=== PATIENT | male | born 1965 | race African-American/Black ===

== ENCOUNTER 2018-04-13 12:13 | Inpatient (IN) | payer OTHER ==
[2018-04-13 14:02] VITALS: BMI 27.6
--- NOTE | 2018-04-13 16:32 | HP ---
CIWA Score - CIWA Score Nausea/Vomitin-No Nausea/No Vomiting Muscle Tremors: 3 Anxiety: 3 Agitation: 2 Paroxysmal Sweats: 2 Orientation: 0-Oriented Tacttile Disturbances: 0-None Auditory Disturbances: 2-Mild Harshness/Frighten Visual Disturbances: 0-None Headache: 0-None Present CIWA-Ar Total Score: 12 Admission ROS BHS - HPI Chief Complaint: alcohol withdrawal sx Allergies/Adverse Reactions: Allergies Allergy/AdvReac Type Severity Reaction Status Date / Time No Known Allergies Allergy Verified 04/13/18 14:49 History of Present Illness: 52 yo male with hx of nicotine, alcohol and crack / cociane is here seeking detox. Last detox [facility] detox 01/31/16 -02/04/16. Reports recently relapse one month ago. PMHX: DM II, GERD, asthma, HTN, depression. Denies suicidal / homicidal ideation or hx of suicide attempt. Denies hx of seizures or blackouts. Longest period of sobriety five years. Exam Limitations: No Limitations - Ebola screening Have you traveled outside of the country in the last 21 days: No Have you had contact with anyone from an Ebola affected area: No Have you been sick,other than usual withdrawal symptoms: No - Review of Systems Constitutional: Chills EENT: reports: Hearing Loss (left ear decrease) Respiratory: reports: No Symptoms reported Cardiac: reports: No Symptoms Reported GI: reports: Poor Fluid Intake, Indigestion : reports: No Symptoms Reported Musculoskeletal: reports: No Symptoms Reported Integumentary: reports: No Symptoms Reported Neuro: reports: Tremors (" I get the shakes in the AM") Endocrine: reports: Increased Thirst Hematology: reports: No Symptoms Reported Psychiatric: reports: Orientated x3, Anxious Other Systems: Reviewed and Negative Patient History - Patient Medical History Hx Anemia: No Hx Asthma: Yes Hx Chronic Obstructive Pulmonary Disease (COPD): No Hx Cancer: No Hx Cardiac Disorders: No Hx Congestive Heart Failure: No Hx Hypertension: Yes Hx Hypercholesterolemia: No Hx Pacemaker: No HX Cerebrovascular Accident: No Hx Seizures: No Hx Dementia: No Hx Diabetes: Yes (IDDM) Hx Gastrointestinal Disorders: Yes (acid reflux) Hx Liver Disease: No Hx Genitourinary Disorders: No Hx Sexually Transmitted Disorders: No Hx Renal Disease (ESRD): No Hx Thyroid Disease: No Hx Human Immunodeficiency Virus (HIV): Yes (1988- on atripla cd4 = 400s) Hx Hepatitis C: No Hx Depression: Yes Hx Suicide Attempt: No Hx Bipolar Disorder: No Hx Schizophrenia: No - Patient Surgical History Past Surgical History: Yes Hx Neurologic Surgery: No Hx Cataract Extraction: No Hx Cardiac Surgery: No Hx Lung Surgery: No Hx Breast Surgery: No Hx Breast Biopsy: No Hx Abdominal Surgery: No Hx Appendectomy: No Hx Cholecystectomy: No Hx Genitourinary Surgery: No Hx Section: No Hx Orthopedic Surgery: No Hx Hysterectomy: No Other Surgical History: tomsillectomy at age 11 Anesthesia Reaction: No - PPD History Previous Implant?: Yes Documented Results: Negative w/proof Implanted On Prior [facility] Admission?: Yes Date: 02/02/16 Results: 0 mm - Smoking Cessation Smoking history: Current every day smoker Have you smoked in the past 12 months: Yes Aproximately how many cigarettes per day: 3 Cigars Per Day: 0 Hx Chewing Tobacco Use: No Initiated information on smoking cessation: Yes 'Breaking Loose' booklet given: 04/13/18 - Substance & Tx. History Hx Alcohol Use: Yes Hx Substance Use: Yes Substance Use Type: Alcohol, Cocaine Hx Substance Use Treatment: Yes (Last detox [facility] detox 01/31/16 -02/04/16.) - Substances Abused Crack Route: Smoking Frequency: 1-2 times per week Amount used: $100 Age of first use: 24 Date of Last Use: 04/12/18 Alcohol-vodka/beer Route: Oral Frequency: Daily Amount used: 2 pts./1 (12 oz.) Age of first use: 16 Date of Last Use: 04/13/18 Family Disease History - Family Disease History Family Disease History: Diabetes: Grandparent, Other: Father (NEVER MEET), Mother (NEVER MEET) Admission Physical Exam BHS - Vital Signs Vital Signs: Vital Signs - 24 hr 04/13/18 13:59 Temperature 96.7 F L Pulse Rate 94 H Respiratory 18 Rate Blood Pressure 128/80 - Physical General Appearance: Yes: Disheveled, Thin, Sweating, Anxious HEENTM: Yes: EOMI, Hearing grossly Normal, Normal ENT Inspection, Normocephalic , Normal Voice, STEFANIE, Pharynx Normal, Tm's normal Respiratory: Yes: Chest Non-Tender, Lungs Clear, Normal Breath Sounds, No Respiratory Distress, No Accessory Muscle Use Neck: Yes: Within Normal Limits Breast: Yes: Breast Exam Deferred Cardiology: Yes: Regular Rhythm, Regular Rate Abdominal: Yes: Normal Bowel Sounds, Non Tender, Flat, Soft Genitourinary: Yes: Within Normal Limits Back: Yes: Normal Inspection Musculoskeletal: Yes: full range of Motion, Gait Steady, Pelvis Stable Extremities: Yes: Normal Capillary Refill, Normal Inspection, Normal Range of Motion, Non-Tender 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: 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: 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 intact, Fully Oriented, Alert, Motor Strength 5/5, Depressed Affect Integumentary: Yes: Normal Color, Warm, Diaphoresis Lymphatic: Yes: Within Normal Limits - Diagnostic (1) Diabetes mellitus type 2 in nonobese Current Visit: Yes Status: Chronic (2) Alcohol dependence with uncomplicated withdrawal Current Visit: Yes Status: Acute (3) Hypertension Current Visit: Yes Status: Chronic Qualifiers: Hypertension type: essential hypertension Qualified Code(s): I10 - Essential (primary) hypertension (4) Nicotine dependence Current Visit: Yes Status: Acute Qualifiers: Nicotine product type: cigarettes Substance use status: uncomplicated Qualified Code(s): F17.210 - Nicotine dependence, cigarettes, uncomplicated (5) Acquired immune deficiency syndrome (AIDS) Current Visit: Yes Status: Chronic (6) Asthma Current Visit: Yes Status: Chronic (7) Cocaine dependence Current Visit: Yes Status: Chronic (8) Hypercholesteremia Current Visit: Yes Status: Chronic (9) GERD (gastroesophageal reflux disease) Current Visit: Yes Status: Suspected Qualifiers: Esophagitis presence: without esophagitis Qualified Code(s): K21.9 - Gastro -esophageal reflux disease without esophagitis Cleared for Admission [facility] - Detox or Rehab [facility] Level of Care: Medically Managed Detox Regimen/Protocol: Librium [facility] Breath Alcohol Content Breath Alcohol Content: 0.018 Urine Drug Screen - Results Drug Screen Negative: No Urine Drug Screen Results: JAZZY-Cocaine
[2018-04-13] MEDS ORDERED: ALBUTEROL SO4 8 GM HFA INHALER IH PRN (16:36)
[2018-04-13] MEDS ORDERED: IBUPROFEN 400 MG TABLET (FP) PO PRN (16:38)
[2018-04-13] MEDS ORDERED: NICOTINE POLACRILEX 2 MG GUM BC PRN (16:38)
[2018-04-13] MEDS ORDERED: MENTHOL/PHENOL 1 EACH UD MM PRN (16:38)
[2018-04-13] MEDS ORDERED: ACETAMINOPHEN 325 MG TABLET (FP) PO PRN (16:38)
[2018-04-13] MEDS ORDERED: guaiFENesin/D-METHORPHAN HB 10 ML UNIT-DOSE CUPS PO PRN (16:38)
[2018-04-13] MEDS ORDERED: MAG HYDROX/AL HYDROX/SIMETH 30 ML UNIT-DOSE CUP PO PRN (16:38)
[2018-04-13] MEDS ORDERED: P-EPHED 60MG/TRIPROLIDI 2.5MG TABLET PO PRN (16:38)
[2018-04-13] MEDS ORDERED: MAGNESIUM HYDROX 2400MG/30ML ORAL SUSPENSION 30 ML CUP PO PRN (16:38)
[2018-04-13] MEDS ORDERED: MAGNESIUM CITRATE 300 ML BOTTLE PO PRN (16:38)
[2018-04-13] MEDS ORDERED: chlordiazePOXIDE HCL 25 MG CAPSULE PO PRN (16:38)
[2018-04-13] MEDS ORDERED: LOPERAMIDE HCL 2 MG CAPSULE PO PRN (16:38)
[2018-04-13] MEDS ORDERED: MELATONIN 5 MG TABLETS PO PRN (22:00)
[2018-04-13] MEDS: THIAMINE HCL 100 MG TABLET (FP) PO SCH (22:22)
[2018-04-13] MEDS: INSULIN (LEVEMIR) 100 UNITS/ML UNITS SQ SCH (22:23)
[2018-04-13] MEDS: chlordiazePOXIDE HCL 25 MG CAPSULE PO SCH (22:24)
[2018-04-13 23:26] LABS: URINE APPEARANCE CLEAR; URINE BILIRUBIN NEGATIVE (<2.0 mg/dL); URINE COLOR LTYELLOW; URINE GLUCOSE (UA) NEGATIVE (NEGATIVE); URINE KETONE NEGATIVE (NEGATIVE); URINE LEUK ESTERASE NEGATIVE (NEGATIVE); URINE NITRITE NEGATIVE (NEGATIVE); URINE PROTEIN NEGATIVE (NEGATIVE); URINE UROBILINOGEN NEGATIVE mg/dL (0.2-1.0)
[2018-04-14] MEDS: chlordiazePOXIDE HCL 25 MG CAPSULE PO SCH ×4 (06:22→22:18)
--- NOTE | 2018-04-14 09:06 | CONSULT ---
[facility] Psychiatric Consult - Data Date of interview: 04/14/18 Admission source: [facility] Identifying data: Patient is a 52 year old single male, father of one, unemployed, and currenly homeless. This is one of multiple admissions for patient. Patient admitted to for for alcohol dependence. Substance Abuse History: Smoking Cessation. Smoking history: Current every day smoker. Have you smoked in the past 12 months: Yes. Aproximately how many cigarettes per day: 3. Cigars Per Day: 0. Hx Chewing Tobacco Use: No. Initiated information on smoking cessation: Yes. 'Breaking Loose' booklet given : 04/13/18. - Substance & Tx. History. Hx Alcohol Use: Yes. Hx Substance Use : Yes. Substance Use Type: Alcohol, Cocaine. Hx Substance Use Treatment: Yes ( Last detox [facility] detox 01/31/16 -02/04/16.). - Substances Abused. Crack. Route : Smoking. Frequency: 1-2 times per week. Amount used: $100. Age of first use : 24. Date of Last Use: 04/12/18. Alcohol-vodka/beer. Route: Oral. Frequency: Daily. Amount used: 2 pts./1 (12 oz.). Age of first use: 16. Date of Last Use: 04/13/18 Medical History: Asthma, hypertension, diabetes, acid reflux, HIV, tonsillectomy Psychiatric History: Patient unable to provide a clear psychiatric history. He denies h/o psychiatric hospitalization and suicide attempt. He reports current outpatient psychiatric care. States he is accepting a "medication for depression but does not take it everyday." Patient is nonadherent to OPD. Currently, he reports feeling fine. Physical/Sexual Abuse/Trauma History: denies. Mental Status Exam - Mental Status Exam Alert and Oriented to: Time, Place, Person Cognitive Function: Good Patient Appearance: Well Groomed Mood: Euthymic Affect: Mood Congruent Patient Behavior: Fatigued, Cooperative Speech Pattern: Appropriate Voice Loudness: Moderately Soft/Quiet Thought Process: Intact, Goal Oriented Thought Disorder: Not Present Hallucinations: Denies Suicidal Ideation: Denies Homicidal Ideation: Denies Insight/Judgement: Poor Sleep: Fair Appetite: Fair Muscle strength/Tone: Normal Gait/Station: Normal Psychiatric Findings - Problem List ([place] 1, 2,3) (1) Alcohol dependence with uncomplicated withdrawal Current Visit: Yes Status: Acute (2) Cocaine dependence Current Visit: Yes Status: Chronic (3) Drug-induced mood disorder Current Visit: Yes Status: Suspected Comment: Observation Detox care unit protocol - Initial Treatment Plan Initial Treatment Plan: Psychoeducation provided. Detoxification in progress. Observation.
[2018-04-14] MEDS: PRENATAL VITAMINS W/ FOLIC ACID TABLET (FP) PO SCH (10:08)
[2018-04-14] MEDS: NICOTINE 14 MG/24 HOURS TOPICAL PATCH TD SCH (10:08)
[2018-04-14] MEDS: PATIENT'S OWN MEDICATION (NON-FORMULARY) (Efavirenz/Emtricitab/Tenofovir 1 TAB) PO SCH (10:09)
[2018-04-14 10:13] LABS: HEMATOCRIT 44.5 % (35.4-49); HEMOGLOBIN 15.3 GM/dL (11.7-16.9); MCH 28.7 pg (25.7-33.7); MCHC 34.3 g/dl (32.0-35.9); MEAN CELL VOLUME 83.5 fl (80-96); PLATELET COUNT 243 K/MM3 (134-434); RBC 5.33 M/mm3 (4.00-5.60); RDW 13.5 % (11.9-15.9); WHITE BLOOD COUNT 4.8 K/mm3 (4.0-10.0)
[2018-04-14] MEDS: HYDROCHLOROTHIAZIDE 25 MG TABLET (FP) PO SCH (10:24)
[2018-04-14] MEDS: amLODIPine BESYLATE 10 MG TABLET (FP) PO SCH (10:24)
[2018-04-14 10:47] LABS: ALBUMIN 3.9 g/dl (3.4-5.0); ALK PHOS 86 U/L (45-117); ANION GAP 12 MMOL/L (8-16); BILIRUBIN,TOTAL 0.3 mg/dL (0.2-1); BLOOD UREA NITROGEN 28 mg/dL (7-18); CALCIUM 9.7 mg/dL (8.5-10.1); CHLORIDE 101 mmol/L (98-107); CO2 24 mmol/L (21-32); CREATININE 1.2 mg/dL (0.55-1.3); GLUCOSE,RANDOM 107 mg/dL (74-106); POTASSIUM 3.8 mmol/L (3.5-5.1); SGOT/AST 21 U/L (15-37); SGPT/ALT 35 U/L (13-61); SODIUM 137 mmol/L (136-145); TOT PROT 8.1 g/dl (6.4-8.2)
--- NOTE | 2018-04-14 12:32 | PN ---
S CIWA - CIWA Score Nausea/Vomitin-Mild Nausea/No Vomiting Muscle Tremors: 3 Anxiety: 2 Agitation: 3 Paroxysmal Sweats: 1-Minimal Palms Moist Orientation: 0-Oriented Tacttile Disturbances: 1-Very Mild Itch/Numbness Auditory Disturbances: 0-None Visual Disturbances: 0-None Headache: 0-None Present CIWA-Ar Total Score: 11 BHS Progress Note (SOAP) Subjective: sweat tremor restlessness trouble sleep at night Objective: 04/14/18 12:32 Vital Signs Temperature 97.9 F 04/14/18 08:53 Pulse Rate 51 L 04/14/18 08:53 Respiratory Rate 18 04/14/18 08:53 Blood Pressure 103/55 L 04/14/18 08:53 O2 Sat by Pulse Oximetry (%) Laboratory Last Values WBC 4.8 K/mm3 (4.0-10.0) 04/14/18 06:00 RBC 5.33 M/mm3 (4.00-5.60) 04/14/18 06:00 Hgb 15.3 GM/dL (11.7-16.9) 04/14/18 06:00 Hct 44.5 % (35.4-49) 04/14/18 06:00 MCV 83.5 fl (80-96) 04/14/18 06:00 MCH 28.7 pg (25.7-33.7) 04/14/18 06:00 MCHC 34.3 g/dl (32.0-35.9) 04/14/18 06:00 RDW 13.5 % (11.9-15.9) 04/14/18 06:00 Plt Count 243 K/MM3 (134-434) D 04/14/18 06:00 MPV 11.0 fl (7.5-11.1) 04/14/18 06:00 Sodium 137 mmol/L (136-145) 04/14/18 06:00 Potassium 3.8 mmol/L (3.5-5.1) 04/14/18 06:00 Chloride 101 mmol/L (98-107) 04/14/18 06:00 Carbon Dioxide 24 mmol/L (21-32) 04/14/18 06:00 Anion Gap 12 MMOL/L (8-16) 04/14/18 06:00 BUN 28 mg/dL (7-18) H 04/14/18 06:00 Creatinine 1.2 mg/dL (0.55-1.3) 04/14/18 06:00 Creat Clearance w eGFR > 60 (>60) 04/14/18 06:00 POC Glucometer 107 UNITS (80-120) 04/14/18 11:37 Random Glucose 107 mg/dL (74-106) H 04/14/18 06:00 Calcium 9.7 mg/dL (8.5-10.1) 04/14/18 06:00 Total Bilirubin 0.3 mg/dL (0.2-1) 04/14/18 06:00 AST 21 U/L (15-37) 04/14/18 06:00 ALT 35 U/L (13-61) 04/14/18 06:00 Alkaline Phosphatase 86 U/L (45-117) 04/14/18 06:00 Total Protein 8.1 g/dl (6.4-8.2) 04/14/18 06:00 Albumin 3.9 g/dl (3.4-5.0) 04/14/18 06:00 Urine Color Ltyellow 04/13/18 20:48 Urine Appearance Clear 04/13/18 20:48 Urine pH 5.0 (5.0-8.0) D 04/13/18 20:48 Ur Specific [place] 1.019 (1.010-1.035) 04/13/18 20:48 Urine Protein Negative (NEGATIVE) 04/13/18 20:48 Urine Glucose (UA) Negative (NEGATIVE) 04/13/18 20:48 Urine Ketones Negative (NEGATIVE) 04/13/18 20:48 Urine Blood Negative (NEGATIVE) 04/13/18 20:48 Urine Nitrite Negative (NEGATIVE) 04/13/18 20:48 Urine Bilirubin Negative (<2.0 mg/dL) 04/13/18 20:48 Urine Urobilinogen Negative mg/dL (0.2-1.0) 04/13/18 20:48 Ur Leukocyte Esterase Negative (NEGATIVE) 04/13/18 20:48 RPR Titer Nonreactive (NONREACTIVE) 04/14/18 06:00 lab noted Assessment: 04/14/18 12:32 withdrawal sx Plan: continue detox
--- NOTE | 2018-04-14 13:18 | EKG ---
Test Reason : Blood Pressure : / mmHG Vent. Rate : 073 BPM Atrial Rate : 073 BPM P-R Int : 154 ms QRS Dur : 088 ms QT Int : 380 ms P-R-T Axes : 071 072 074 degrees QTc Int : 418 ms NORMAL SINUS RHYTHM MODERATE VOLTAGE CRITERIA FOR LVH, MAY BE NORMAL VARIANT BORDERLINE ECG NO PREVIOUS ECGS AVAILABLE Confirmed by MD SUSAN, EYAD ([id number]) on 04/14/2018 1:17:45 PM Referred By: Confirmed By:EYAD DAVIS MD
[2018-04-14] MEDS: INSULIN (LEVEMIR) 100 UNITS/ML UNITS SQ SCH (22:17)
[2018-04-14] MEDS: THIAMINE HCL 100 MG TABLET (FP) PO SCH (22:17)
[2018-04-15] MEDS: chlordiazePOXIDE HCL 25 MG CAPSULE PO SCH ×3 (05:45→16:53)
[2018-04-15] MEDS: PRENATAL VITAMINS W/ FOLIC ACID TABLET (FP) PO SCH (10:21)
[2018-04-15] MEDS: NICOTINE 14 MG/24 HOURS TOPICAL PATCH TD SCH (10:21)
[2018-04-15] MEDS: PATIENT'S OWN MEDICATION (NON-FORMULARY) (Efavirenz/Emtricitab/Tenofovir 1 TAB) PO SCH (10:21)
[2018-04-15] MEDS: HYDROCHLOROTHIAZIDE 25 MG TABLET (FP) PO SCH (10:21)
[2018-04-15] MEDS: amLODIPine BESYLATE 10 MG TABLET (FP) PO SCH (10:21)
--- NOTE | 2018-04-15 12:04 | PN ---
[facility] CIWA - CIWA Score Nausea/Vomitin-No Nausea/No Vomiting Muscle Tremors: 3 Anxiety: 2 Agitation: 1-Slight > Activity Paroxysmal Sweats: 1-Minimal Palms Moist Orientation: 1-Uncertain about Date (to date) Tacttile Disturbances: 1-Very Mild Itch/Numbness Auditory Disturbances: 0-None Visual Disturbances: 0-None Headache: 1-Very Mild CIWA-Ar Total Score: 10 BHS Progress Note (SOAP) Subjective: sweat tremor trouble sleep at night gi destress Objective: 04/15/18 12:03 Vital Signs Temperature 98.1 F 04/15/18 10:04 Pulse Rate 57 L 04/15/18 10:04 Respiratory Rate 18 04/15/18 10:04 Blood Pressure 124/76 04/15/18 10:04 O2 Sat by Pulse Oximetry (%) Laboratory Last Values WBC 4.8 K/mm3 (4.0-10.0) 04/14/18 06:00 RBC 5.33 M/mm3 (4.00-5.60) 04/14/18 06:00 Hgb 15.3 GM/dL (11.7-16.9) 04/14/18 06:00 Hct 44.5 % (35.4-49) 04/14/18 06:00 MCV 83.5 fl (80-96) 04/14/18 06:00 MCH 28.7 pg (25.7-33.7) 04/14/18 06:00 MCHC 34.3 g/dl (32.0-35.9) 04/14/18 06:00 RDW 13.5 % (11.9-15.9) 04/14/18 06:00 Plt Count 243 K/MM3 (134-434) D 04/14/18 06:00 MPV 11.0 fl (7.5-11.1) 04/14/18 06:00 Sodium 137 mmol/L (136-145) 04/14/18 06:00 Potassium 3.8 mmol/L (3.5-5.1) 04/14/18 06:00 Chloride 101 mmol/L (98-107) 04/14/18 06:00 Carbon Dioxide 24 mmol/L (21-32) 04/14/18 06:00 Anion Gap 12 MMOL/L (8-16) 04/14/18 06:00 BUN 28 mg/dL (7-18) H 04/14/18 06:00 Creatinine 1.2 mg/dL (0.55-1.3) 04/14/18 06:00 Creat Clearance w eGFR > 60 (>60) 04/14/18 06:00 POC Glucometer 114 UNITS (80-120) 04/15/18 05:47 Random Glucose 107 mg/dL (74-106) H 04/14/18 06:00 Calcium 9.7 mg/dL (8.5-10.1) 04/14/18 06:00 Total Bilirubin 0.3 mg/dL (0.2-1) 04/14/18 06:00 AST 21 U/L (15-37) 04/14/18 06:00 ALT 35 U/L (13-61) 04/14/18 06:00 Alkaline Phosphatase 86 U/L (45-117) 04/14/18 06:00 Total Protein 8.1 g/dl (6.4-8.2) 04/14/18 06:00 Albumin 3.9 g/dl (3.4-5.0) 04/14/18 06:00 Urine Color Ltyellow 04/13/18 20:48 Urine Appearance Clear 04/13/18 20:48 Urine pH 5.0 (5.0-8.0) D 04/13/18 20:48 Ur Specific [place] 1.019 (1.010-1.035) 04/13/18 20:48 Urine Protein Negative (NEGATIVE) 04/13/18 20:48 Urine Glucose (UA) Negative (NEGATIVE) 04/13/18 20:48 Urine Ketones Negative (NEGATIVE) 04/13/18 20:48 Urine Blood Negative (NEGATIVE) 04/13/18 20:48 Urine Nitrite Negative (NEGATIVE) 04/13/18 20:48 Urine Bilirubin Negative (<2.0 mg/dL) 04/13/18 20:48 Urine Urobilinogen Negative mg/dL (0.2-1.0) 04/13/18 20:48 Ur Leukocyte Esterase Negative (NEGATIVE) 04/13/18 20:48 RPR Titer Nonreactive (NONREACTIVE) 04/14/18 06:00 lab noted Assessment: 04/15/18 12:03 withdrawal sx Plan: continue detox
[2018-04-15] MEDS: chlordiazePOXIDE 5 MG CAPSULE PO SCH (23:31)
[2018-04-15] MEDS: THIAMINE HCL 100 MG TABLET (FP) PO SCH (23:31)
[2018-04-15] MEDS: INSULIN (LEVEMIR) 100 UNITS/ML UNITS SQ SCH (23:34)
[2018-04-16] MEDS: chlordiazePOXIDE 5 MG CAPSULE PO SCH ×3 (06:38→17:31)
--- NOTE | 2018-04-16 10:17 | PN ---
BHS Progress Note (SOAP) Subjective: feeling better no tremor less sweat no gi distress sleep better at night discuss aftercare Objective: 04/16/18 10:16 Vital Signs Temperature 97.7 F 04/16/18 09:26 Pulse Rate 69 04/16/18 09:26 Respiratory Rate 18 04/16/18 09:26 Blood Pressure 130/86 04/16/18 09:26 O2 Sat by Pulse Oximetry (%) Laboratory Last Values WBC 4.8 K/mm3 (4.0-10.0) 04/14/18 06:00 RBC 5.33 M/mm3 (4.00-5.60) 04/14/18 06:00 Hgb 15.3 GM/dL (11.7-16.9) 04/14/18 06:00 Hct 44.5 % (35.4-49) 04/14/18 06:00 MCV 83.5 fl (80-96) 04/14/18 06:00 MCH 28.7 pg (25.7-33.7) 04/14/18 06:00 MCHC 34.3 g/dl (32.0-35.9) 04/14/18 06:00 RDW 13.5 % (11.9-15.9) 04/14/18 06:00 Plt Count 243 K/MM3 (134-434) D 04/14/18 06:00 MPV 11.0 fl (7.5-11.1) 04/14/18 06:00 Sodium 137 mmol/L (136-145) 04/14/18 06:00 Potassium 3.8 mmol/L (3.5-5.1) 04/14/18 06:00 Chloride 101 mmol/L (98-107) 04/14/18 06:00 Carbon Dioxide 24 mmol/L (21-32) 04/14/18 06:00 Anion Gap 12 MMOL/L (8-16) 04/14/18 06:00 BUN 28 mg/dL (7-18) H 04/14/18 06:00 Creatinine 1.2 mg/dL (0.55-1.3) 04/14/18 06:00 Creat Clearance w eGFR > 60 (>60) 04/14/18 06:00 POC Glucometer 143 UNITS (80-120) 04/16/18 06:30 Random Glucose 107 mg/dL (74-106) H 04/14/18 06:00 Calcium 9.7 mg/dL (8.5-10.1) 04/14/18 06:00 Total Bilirubin 0.3 mg/dL (0.2-1) 04/14/18 06:00 AST 21 U/L (15-37) 04/14/18 06:00 ALT 35 U/L (13-61) 04/14/18 06:00 Alkaline Phosphatase 86 U/L (45-117) 04/14/18 06:00 Total Protein 8.1 g/dl (6.4-8.2) 04/14/18 06:00 Albumin 3.9 g/dl (3.4-5.0) 04/14/18 06:00 Urine Color Ltyellow 04/13/18 20:48 Urine Appearance Clear 04/13/18 20:48 Urine pH 5.0 (5.0-8.0) D 04/13/18 20:48 Ur Specific [place] 1.019 (1.010-1.035) 04/13/18 20:48 Urine Protein Negative (NEGATIVE) 04/13/18 20:48 Urine Glucose (UA) Negative (NEGATIVE) 04/13/18 20:48 Urine Ketones Negative (NEGATIVE) 04/13/18 20:48 Urine Blood Negative (NEGATIVE) 04/13/18 20:48 Urine Nitrite Negative (NEGATIVE) 04/13/18 20:48 Urine Bilirubin Negative (<2.0 mg/dL) 04/13/18 20:48 Urine Urobilinogen Negative mg/dL (0.2-1.0) 04/13/18 20:48 Ur Leukocyte Esterase Negative (NEGATIVE) 04/13/18 20:48 RPR Titer Nonreactive (NONREACTIVE) 04/14/18 06:00 lab noted Assessment: 04/16/18 10:16 mild withdrawal sx Plan: medically supervised detox
[2018-04-16] MEDS: PRENATAL VITAMINS W/ FOLIC ACID TABLET (FP) PO SCH (10:45)
[2018-04-16] MEDS: NICOTINE 14 MG/24 HOURS TOPICAL PATCH TD SCH (10:45)
[2018-04-16] MEDS: amLODIPine BESYLATE 10 MG TABLET (FP) PO SCH (10:45)
[2018-04-16] MEDS: HYDROCHLOROTHIAZIDE 25 MG TABLET (FP) PO SCH (10:45)
[2018-04-16] MEDS: PATIENT'S OWN MEDICATION (NON-FORMULARY) (Efavirenz/Emtricitab/Tenofovir 1 TAB) PO SCH (10:45)
[2018-04-16] MEDS: INSULIN (LEVEMIR) 100 UNITS/ML UNITS SQ SCH (22:23)
[2018-04-16] MEDS: THIAMINE HCL 100 MG TABLET (FP) PO SCH (22:24)
[2018-04-16] MEDS: chlordiazePOXIDE HCL 10 MG CAPSULE PO SCH (22:24)
[2018-04-17] MEDS: chlordiazePOXIDE HCL 10 MG CAPSULE PO SCH (06:37)
--- NOTE | 2018-04-17 08:58 | DS ---
[facility] Detox Discharge Summary Admission Date: 04/13/18 Discharge Date: 04/17/18 - History Present History: Alcohol Dependence - Physical Exam Results Vital Signs: Vital Signs Temperature 97.3 F L 04/17/18 08:07 Pulse Rate 70 04/17/18 08:07 Respiratory Rate 18 04/17/18 08:07 Blood Pressure 124/92 04/17/18 08:07 O2 Sat by Pulse Oximetry (%) - Treatment Hospital Course: Detox Protocol Followed, Detoxed Safely, Responded well, Discharged Condition Good, Rehab Referral Accepted - Medication Discharge Medications: Ambulatory Orders Efavirenz/Emtricitab/Tenofovir [Atripla Tablet -] 1 tab PO DAILY 01/31/16 Beclomethasone Dipropionate [Qvar] 2 puff IH BID 04/13/18 Albuterol Sulfate Inhaler - [Ventolin HFA Inhaler -] 1 - 2 inh IH Q4H PRN #1 inhaler 04/16/18 Amlodipine Besylate [Norvasc -] 10 mg PO DAILY #30 tablet 04/16/18 Hydrochlorothiazide [Hctz -] 25 mg PO DAILY #30 tablet 04/16/18 Insulin Glargine,Hum.rec.anlog [Lantus Solostar PEN -] 10 - 20 units SQ HS #1 ins 04/16/18 metFORMIN XR [Glucophage Xr -] 750 mg PO DAILY #30 tab.sr.24h 04/16/18 - Diagnosis (1) Alcohol dependence with uncomplicated withdrawal Current Visit: Yes Status: Acute (2) Nicotine dependence Current Visit: Yes Status: Acute Qualifiers: Nicotine product type: cigarettes Substance use status: uncomplicated Qualified Code(s): F17.210 - Nicotine dependence, cigarettes, uncomplicated (3) Acquired immune deficiency syndrome (AIDS) Current Visit: Yes Status: Chronic (4) Asthma Current Visit: Yes Status: Chronic (5) Cocaine dependence Current Visit: Yes Status: Chronic (6) Diabetes mellitus type 2 in nonobese Current Visit: Yes Status: Chronic (7) Hypercholesteremia Current Visit: Yes Status: Chronic (8) Hypertension Current Visit: Yes Status: Chronic Qualifiers: Hypertension type: essential hypertension Qualified Code(s): I10 - Essential (primary) hypertension (9) Drug-induced mood disorder Current Visit: Yes Status: Suspected (10) GERD (gastroesophageal reflux disease) Current Visit: Yes Status: Suspected Qualifiers: Esophagitis presence: without esophagitis Qualified Code(s): K21.9 - Gastro -esophageal reflux disease without esophagitis (11) Alcohol dependence Current Visit: No Status: Active (12) aids Current Visit: No Status: Active (13) Depression (emotion) Current Visit: No Status: Suspected Qualifiers: Depression Type: dysthymia Qualified Code(s): F34.1 - Dysthymic disorder - AMA Did Patient Leave Against Medical Advice: No
[2018-04-17 09:14] VITALS: BP 131/97; PULSE 75; TEMP 98.1
[2018-04-17] MEDS: NICOTINE 14 MG/24 HOURS TOPICAL PATCH TD SCH (10:09)
[2018-04-17] MEDS: HYDROCHLOROTHIAZIDE 25 MG TABLET (FP) PO SCH (10:09)
[2018-04-17] MEDS: PATIENT'S OWN MEDICATION (NON-FORMULARY) (Efavirenz/Emtricitab/Tenofovir 1 TAB) PO SCH (10:09)
[2018-04-17] MEDS: PRENATAL VITAMINS W/ FOLIC ACID TABLET (FP) PO SCH (10:09)
[2018-04-17] MEDS: amLODIPine BESYLATE 10 MG TABLET (FP) PO SCH (10:09)
== END 2018-04-17 13:11 | disposition home or self-care (01) | DRG 774 ==
LOC: YASAS 12:13 → Y6N 16:39
PROC: HZ2ZZZZ Detoxification Services for Substance Abuse Treatment (ICD-10-PCS; principal; 2018-04-13)
DX: F10.230 Alcohol dependence with withdrawal, uncomplicated (principal); F14.20 Cocaine dependence, uncomplicated; F17.210 Nicotine dependence, cigarettes, uncomplicated; F19.24 Other psychoactive substance dependence with psychoactive substance-induced mood disorder; F32.9 Major depressive disorder, single episode, unspecified; I10 Essential (primary) hypertension; B20 Human immunodeficiency virus [HIV] disease; J45.909 Unspecified asthma, uncomplicated; E11.9 Type 2 diabetes mellitus without complications; E78.00 Pure hypercholesterolemia, unspecified; K21.9 Gastro-esophageal reflux disease without esophagitis; Z79.4 Long term (current) use of insulin
CPT/HCPCS: 36415; 80053; 81003; 82962; 85027; 86593; 93005; 93010